=== PATIENT | female | born 1975 | race Two or more races ===

== ENCOUNTER 2019-02-18 23:03 | Emergency (ER) | payer SELFPAY ==
[~2019-02-18] VITALS: Ht 170.2 cm; Wt 96.8 kg
[2019-02-19] MEDS ORDERED: SODIUM CHLORIDE 0.9% 1,000 ML IV ONE (03:00)
[2019-02-19] MEDS ORDERED: ONDANSETRON HCL 4 MG/2 ML VIAL IVP ONE (03:00)
[2019-02-19] MEDS ORDERED: MORPHINE SULFATE 2 MG/ML SYRINGE IVP ONE (03:00)
[2019-02-19] MEDS ORDERED: KETOROLAC TROMETHAMINE 30 MG/ML VIAL IVP ONE (03:00)
[2019-02-19 03:12] LABS: BASOPHILS % (AUTO) 0.6 % (0.0-2.0); EOSINOPHILS % (AUTO) 0.7 % (1.0-6.0); HEMATOCRIT 40.3 % (36-46); HEMOGLOBIN 13.6 g/dL (12.0-16.0); LYMPHOCYTES # (AUTO) 0.5 K/uL (1.0-4.8); LYMPHOCYTES % (AUTO) 6.7 % (22.0-44.0); MEAN CORPUSCULAR HEMOGLOBIN 28.6 pg (26.0-34.0); MEAN CORPUSCULAR HGB CONC 33.8 G/dL (31.0-37.0); MEAN CORPUSCULAR VOLUME 85 fL (80-100); MONOCYTES # (AUTO) 0.5 K/uL (0.1-1.0); MONOCYTES % (AUTO) 7.1 % (2.0-9.0); NEUTROPHILS # (AUTO) 6.4 K/uL (1.8-7.7); NEUTROPHILS % (AUTO) 84.9 % (40.0-70.0); PLATELET COUNT (AUTO) 281 K/uL (150-450); RED BLOOD CELL COUNT(AUTO) 4.76 MIL/uL (4.00-5.20); RED CELL DISTRIBUTION WIDTH 14.1 % (11.5-14.5)
[2019-02-19 03:19] LABS: ANION GAP 7 mmol/L (8-16); CALCIUM, TOTAL 8.9 mg/dL (8.8-10.5); CARBON DIOXIDE 27 mmol/L (22-29); CHLORIDE 100 mmol/L (98-107); CREATININE 0.68 mg/dL (0.60-1.30); GLOMERULAR FILTR. RATE CALC > 60 mL/min (>60); GLUCOSE,RANDOM 104 mg/dL (70-110); POTASSIUM 3.6 mmol/L (3.5-5.1); SODIUM SERUM 134 mmol/L (136-145); UREA NITROGEN, BLOOD 5 mg/dL (7-18)
[2019-02-19 03:32] LABS: ALANINE AMINOTRANSFERASE 78 U/L (12-78); ALBUMIN 3.5 g/dL (3.4-5.0); ALKALINE PHOSPHATASE 128 U/L (46-116); ASPARTATE AMINOTRANSFERASE 42 U/L (15-37); BILIRUBIN,TOTAL 0.5 mg/dL (0.1-1.0); HCG,QUANTITATIVE < 1 mIU/mL (0-6); TOTAL PROTEIN, SERUM 7.9 g/dL (6.4-8.2)
[2019-02-19 04:39] VITALS: BP 127/76
== END 2019-02-19 04:47 | disposition home or self-care (01) ==
LOC: EMS 23:07
DX: J06.9 Acute upper respiratory infection, unspecified (principal); R51 Headache; F12.90 Cannabis use, unspecified, uncomplicated
CPT/HCPCS: 36415; 80053; 84702; 85025; 96374; 96375; 99283; J1885; J2270; J2405; J7030

== ENCOUNTER 2020-12-13 08:49 | Emergency (ER) | payer OTHER ==
[~2020-12-13] VITALS: Ht 162.6 cm; Wt 90.9 kg
[2020-12-13 13:03] VITALS: BP 135/69
== END 2020-12-13 13:04 | disposition home or self-care (01) ==
LOC: EMS 08:52
DX: S92.351A Displaced fracture of fifth metatarsal bone, right foot, initial encounter for closed fracture (principal); S92.331A Displaced fracture of third metatarsal bone, right foot, initial encounter for closed fracture; S93.401A Sprain of unspecified ligament of right ankle, initial encounter; F12.90 Cannabis use, unspecified, uncomplicated; W01.0XXA Fall on same level from slipping, tripping and stumbling without subsequent striking against object, initial encounter; Y93.01 Activity, walking, marching and hiking; Y92.89 Other specified places as the place of occurrence of the external cause; Y99.8 Other external cause status
CPT/HCPCS: 29515; 99284; 73590-TC; 73610-TC; 73630-TC; Z7502

== ENCOUNTER 2020-12-17 00:49 | Emergency (ER) | payer OTHER ==
[~2020-12-17] VITALS: Ht 167.6 cm; Wt 77.3 kg
[2020-12-17 01:15] VITALS: BP 123/54
== END 2020-12-17 02:11 | disposition home or self-care (01) ==
LOC: EMS 00:49
DX: S92.354A Nondisplaced fracture of fifth metatarsal bone, right foot, initial encounter for closed fracture (principal); W10.8XXA Fall (on) (from) other stairs and steps, initial encounter; Y93.89 Activity, other specified; Y92.89 Other specified places as the place of occurrence of the external cause; Y99.8 Other external cause status
CPT/HCPCS: 29515; 99283

== ENCOUNTER 2021-01-23 09:25 | Emergency (ER) | payer OTHER ==
[~2021-01-23] VITALS: Ht 167.6 cm; Wt 95.5 kg
[2021-01-23 11:30] VITALS: BP 132/88
== END 2021-01-23 11:38 | disposition home or self-care (01) ==
LOC: EMS 09:28
DX: S92.351A Displaced fracture of fifth metatarsal bone, right foot, initial encounter for closed fracture (principal); F12.90 Cannabis use, unspecified, uncomplicated; X58.XXXA Exposure to other specified factors, initial encounter; Y93.89 Activity, other specified; Y92.89 Other specified places as the place of occurrence of the external cause; Y99.8 Other external cause status
CPT/HCPCS: 29515; 99283